=== PATIENT | female | born 1940 | race Caucasian/White ===

== ENCOUNTER 2020-05-02 06:52 | Outpatient (REF) | payer MEDICARE, SELFPAY ==
[2020-05-02 07:55] LABS: Alanine Aminotransferase 10 U/L (0-31); Albumin Level 3.1 g/dL (3.5-5.0); Alkaline Phosphatase 89 U/L (39-117); Anion Gap 13 (12-20); Aspartate Amino Transferase 15 U/L (5-31); Bilirubin Total 0.6 mg/dL (0.0-1.0); Blood Urea Nitrogen 58 mg/dL (9-16); Calcium 8.7 mg/dL (8.4-10.2); Carbon Dioxide 31 mmol/L (22-29); Chloride 104 mmol/L (96-108); Estimated Glomerular Filt Rate 30; Glucose Random 95 mg/dL (60-115); Potassium 3.6 mmol/l (3.3-5.1); Sodium 144 mmol/L (135-145); Total Protein 7.1 g/dL (6.5-8.0)
[2020-05-02 07:58] LABS: Hematocrit 35.2 % (37-47); Hemoglobin 10.2 g/dl (12.0-16.0); Mean Corpuscular Hemoglobin 26.6 pg (27.0-33.0); Mean Corpuscular Volume 91.7 fL (80-98); Mean Platelet Volume 10.2 fL (9.4-12.3); Platelet Count 107 X10*3/uL (160-400); Red Blood Count 3.84 X10*6/uL (4.20-5.50); Red Cell Distribution Width 17.9 % (11.0-16.0); White Blood Count 4.3 X10*3/uL (4.8-10.8)
== END 2020-05-02 06:53 | disposition home or self-care (01) ==
LOC: HO.MMNH1L 06:52
PROVIDERS: Visit Provider Family Medicine
DX: M79.89 Other specified soft tissue disorders (principal); R06.00 Dyspnea, unspecified
CPT/HCPCS: 36415; 80053; 85027

== ENCOUNTER 2020-05-05 | Outpatient (REF) | payer MEDICARE, SELFPAY ==
[2020-05-05 06:19] LABS: Hematocrit 36.6 % (37-47); Hemoglobin 10.6 g/dl (12.0-16.0); Mean Corpuscular Hemoglobin 26.2 pg (27.0-33.0); Mean Corpuscular Volume 90.4 fL (80-98); Mean Platelet Volume 10.9 fL (9.4-12.3); Platelet Count 92 X10*3/uL (160-400); Red Blood Count 4.05 X10*6/uL (4.20-5.50); White Blood Count 4.4 X10*3/uL (4.8-10.8)
[2020-05-05 07:01] LABS: Alanine Aminotransferase 9 U/L (0-31); Alkaline Phosphatase 94 U/L (39-117); Anion Gap 13 (12-20); Aspartate Amino Transferase 15 U/L (5-31); Bilirubin Total 0.6 mg/dL (0.0-1.0); Blood Urea Nitrogen 59 mg/dL (9-16); Calcium 8.9 mg/dL (8.4-10.2); Carbon Dioxide 28 mmol/L (22-29); Chloride 104 mmol/L (96-108); Estimated Glomerular Filt Rate 29; Glucose Random 86 mg/dL (60-115); Potassium 4.2 mmol/l (3.3-5.1); Sodium 141 mmol/L (135-145)
== END 2020-05-05 00:01 ==
LOC: HO.MMNH1L
PROVIDERS: Visit Provider Family Medicine
DX: R60.0 Localized edema (principal); R13.10 Dysphagia, unspecified
CPT/HCPCS: 36415; 80053; 85027

== ENCOUNTER 2020-05-14 07:03 | Outpatient (REF) | payer MEDICARE, SELFPAY ==
[2020-05-14 07:36] LABS: Hematocrit 38.3 % (37-47); Hemoglobin 11.3 g/dl (12.0-16.0); Mean Corpuscular HGB Conc 29.5 g/dl (31.0-35.0); Mean Corpuscular Hemoglobin 26.4 pg (27.0-33.0); Mean Corpuscular Volume 89.5 fL (80-98); Mean Platelet Volume 11.2 fL (9.4-12.3); NRBC Pct Auto 0.3 /100WBC (0.0-0.2); Platelet Count 106 X10*3/uL (160-400); Red Blood Count 4.28 X10*6/uL (4.20-5.50); Red Cell Distribution Width 18.8 % (11.0-16.0); White Blood Count 6.3 X10*3/uL (4.8-10.8)
[2020-05-14 08:06] LABS: Alanine Aminotransferase 111 U/L (0-31); Albumin Level 3.7 g/dL (3.5-5.0); Alkaline Phosphatase 114 U/L (39-117); Anion Gap 24 (12-20); Aspartate Amino Transferase 145 U/L (5-31); Bilirubin Total 0.8 mg/dL (0.0-1.0); Calcium 9.3 mg/dL (8.4-10.2); Carbon Dioxide 21 mmol/L (22-29); Chloride 102 mmol/L (96-108); Glucose Random 78 mg/dL (60-115); Sodium 141 mmol/L (135-145); Total Protein 7.3 g/dL (6.5-8.0)
[2020-05-14 08:48] LABS: Blood Urea Nitrogen 102 mg/dL (9-16); Estimated Glomerular Filt Rate 10; Potassium 6.3 mmol/l (3.3-5.1)
== END 2020-05-14 07:04 | disposition home or self-care (01) ==
LOC: HO.MMNH1L 07:03
PROVIDERS: Visit Provider Family Medicine
DX: E87.5 Hyperkalemia (principal); R06.02 Shortness of breath
CPT/HCPCS: 36415; 80053; 85027